=== PATIENT | male | born 1980 | race Caucasian/White ===

== ENCOUNTER 2016-12-21 11:12 | Inpatient (IN) | payer SELFPAY ==
[~2016-12-21] VITALS: Ht 188 cm; Wt 72.3 kg
--- NOTE | ~2016-12-21 | ER ---
PATIENT'S NAME: JOSIAH PALUMBO [facility] AGE: 36 Y [address] ROOM: [id number] [place] [id number] LOCATION: [facility] ADMIT DATE: 12/21/2016 ER/Outpatient Report DISCHARGE DATE: FAMILY PHYSICIAN: PHYSICIAN, NO ATTENDING PHYSICIAN: Greta Waddell Time of Arrival: 1112 hours. Time Seen: 1155 hours. IDENTIFICATION: A 36-year-old male. CHIEF COMPLAINT: Low back pain. HISTORY OF PRESENT ILLNESS: The patient is a 36-year-old male who has had low back pain, has seen a chiropractor for that, that seemed to get better, but now he has sciatic pain. Saw Dr. Dwyer in the clinic and was diagnosed with piriformis syndrome, treated with anti-inflammatories, Mobic and he has had an increase in pain from his left buttock all the way down his left leg and now his calf is hurting so bad he is having difficulty even bearing weight. He also has some numbness and tingling and this morning he had an episode where he was almost incontinent of urine. He was able to make it to the bathroom, but he felt like he was going to wet his pants which is unusual for him. No bowel problems. No known injury. PAST MEDICAL HISTORY: ALLERGIES: NO KNOWN DRUG ALLERGIES. CURRENT MEDICATIONS: He was given a shot of Toradol on in [place] and then he has been on meloxicam daily. MEDICAL PROBLEMS: Denies. PRIOR SURGERIES: Denies. SOCIAL HISTORY: The patient lives here in [place]. Works for [employer] and he has continued to work. Tobacco use, half pack per day for 5 years. Alcohol use, PATIENT'S NAME: JOSIAH PALUMBO [facility] AGE: 36 Y [address] ROOM: [id number] [place], [place] [address] LOCATION: [facility] ADMIT DATE: 12/21/2016 ER/Outpatient Report DISCHARGE DATE: FAMILY PHYSICIAN: PHYSICIAN, NO ATTENDING PHYSICIAN: Greta Waddell denies. Drug use, denies. REVIEW OF SYSTEMS: All systems reviewed and negative other than what is noted in the HPI. FAMILY HISTORY: No pertinent family history. PHYSICAL EXAMINATION: VITAL SIGNS: Weight 70.7 kilograms, blood pressure 134/60, pulse 68, respirations 20, temperature 97.2, and saturations 98% on room air. GENERAL: A 36-year-old male in obvious distress, a 10/10 pain. He is lying in a prone position on the cart. HEENT: Unremarkable. LUNGS: Clear to auscultation. HEART: Regular rate and rhythm. ABDOMEN: Soft, nondistended, nontender. SKIN: [place], warm, and dry. No lower extremity edema. He does have calf tenderness on the left. NEUROLOGIC: The patient is alert and oriented x4. Cranial nerves 2 through 12 grossly intact. Motor strength 5/5 throughout with the exception of plantar flexion of his left foot. He has a little bit of weakness. He has decreased sensation and tingling on the lateral aspect of the left leg, a little bit on the medial calf. Straight leg raise positive on the left. EMERGENCY DEPARTMENT COURSE: The patient was given Percocet 5/325 one tablet, Valium 2 mg p.o. for pain and spasm, while we were waiting for lab work. These did help with his pain and he was given the second Percocet. LABORATORY DATA AND X-RAYS: Hemoglobin 14.2, hematocrit 40.4, platelets 178, white count 6.5 with a normal differential. Sedimentation rate is 15. Sodium 143, potassium 3.7, chloride 110, CO2 of 27, BUN 19, creatinine 1.1, blood sugar 73. Liver enzymes normal. CRP less than 0.29. UA is negative. MRI of his lumbar spine, large left paracentral disk herniation at L4-L5 with spinal stenosis and left lateral recess stenosis, mild degenerative changes at the lower lumbar intervertebral levels with disk desiccation at L3-L4, L4-L5, and L5-S1. IMPRESSION AND PLAN: Large left paracentral disk herniation in a patient with chronic low back pain with acute exacerbation. The patient has sensory changes, slight weakness on plantar flexion, and difficulty controlling his urine this morning. I spoke with Dr. Waddell, the spine surgeon on-call, who recommended lumbar microdiskectomy. The patient did agree with this plan of care, so the patient PATIENT'S NAME: JOSIAH PALUMBO [facility] AGE: 36 Y [address] ROOM: [place] [id number] LOCATION: [facility] ADMIT DATE: 12/21/2016 ER/Outpatient Report DISCHARGE DATE: FAMILY PHYSICIAN: PHYSICIAN, NOAH ATTENDING PHYSICIAN: Greta Waddell will be admitted for Dr. Waddell who did evaluate the patient in the emergency room. MD RAHUL JANSEN/kayla /[id number] d: 12/21/168 t: 12/22/16 0712, OUTPATIENT REPORT
--- NOTE | ~2016-12-21 | HP ---
PATIENT'S NAME: GONSALO PALUMBO [facility] AGE: 36 Y [address] ROOM: [id number] [place], [place] [address] LOCATION: [facility] ADMIT DATE: 12/21/2016 History & Physical DISCHARGE DATE: FAMILY PHYSICIAN: PHYSICIAN, NO ATTENDING PHYSICIAN: Greta Waddell DATE OF SERVICE: 12/21/2016 REASON FOR CONSULTATION: Lumbar disk herniation. PATIENT IDENTIFICATION: Gonsalo Palumbo is a 36-year-old male. PRESENTING COMPLAINT: Left leg pain and difficulty with walking. HISTORY OF PRESENT ILLNESS: The patient has had back problems since May last year. Throughout the winter time, he had chiropractic adjustments. On or two weekends ago, the patient had onset of severe pain. He was in [place] at that time, and he went to the [place] emergency room where he had a shot and came home here to [place]. Yesterday, he had some more chiropractic treatment and the pain started to go into the lower part of his left leg. He also had more trouble with walking. This morning he tried to urinate and could barely make it to the bathroom and almost urinated on himself. He came to the emergency room and was seen by Dr. Villanueva. Lumbar spine MRI showed a large disk herniation. I was, therefore, consulted to see the patient. Currently the patient is walking with crutches. He has trouble with sensation on the left foot. The patient has tried physical therapy, but the physical therapy seems to make his symptoms worse. He also has tingling all the way down the left leg. PAST MEDICAL HISTORY: No history of any major medical illnesses in the past. CURRENT MEDICATIONS: Meloxicam. ALLERGIES: PATIENT'S NAME: GONSALO PALUMBO [facility] AGE: 36 Y [address] ROOM: [id number] [place], [place] [address] LOCATION: [facility] ADMIT DATE: 12/21/2016 History & Physical DISCHARGE DATE: FAMILY PHYSICIAN: PHYSICIAN, NO ATTENDING PHYSICIAN: Greta Waddell NONE. SOCIAL HISTORY: The patient is . He smokes half a pack of cigarettes per day for the last 5 years. FAMILY HISTORY: There is no family history of similar problems. REVIEW OF SYSTEMS: A 10-point review of systems was carried out and the only abnormal finding was as described in the history of present illness. GENERAL: The patient is a healthy-looking male, who was alert and cooperative when I saw him. VITAL SIGNS: Blood pressure is 134/60 with a pulse rate of 68. NEUROLOGICAL: His speech is clear and lucid. Cranial nerves no deficits seen. Motor examination, the patient has normal strength in all the major muscle groups of his upper and lower extremities bilaterally. Surprisingly, he does not have a left foot drop given the size of his disc herniation. Sensor examination, there is diminished sensation to light and touch in the left foot. He can feel my had touching his foot, but he feels like the hand is above the foot. Straight leg raising is strikingly positive at just about 20 degrees on the left side. Gait: The patient walks with a with crutches. His head is atraumatic. The patient's skin is decorated with multiple tattoos. CARDIOVASCULAR: Heart sounds are present. RESPIRATORY: The patient is not short of breath at bedside. EXTREMITIES: No cyanosis or clubbing. SKIN: No skin masses or skin rashes. REVIEW OF IMAGING STUDIES: The patient has had a lumbar MRI performed today. The MRI shows a very large left L4-5 disk herniation. The disk herniation just about occupies the entire spinal canal. There is a disk bulge at L3-4. ASSESSMENT: A 36-year-old male with chronic low back pain with an acute flare-up in the last 2 weeks. The patient has significant pain in his leg and minor difficulty controlling his urine. MEDICAL DECISION MAKING: I reviewed the imaging studies and discussed the findings with the patient. Basically, I have recommended lumbar microdiskectomy. I feel that with the duration of his symptoms and the severity of his pain, the size of the disk herniation, and most significantly the side that he almost lost during control PATIENT'S NAME: GONSALO PALUMBO [facility] AGE: 36 Y [address] ROOM: [id number] [place], [place] [address] LOCATION: [facility] ADMIT DATE: 12/21/2016 History & Physical DISCHARGE DATE: FAMILY PHYSICIAN: PHYSICIAN, NO ATTENDING PHYSICIAN: Greta Waddell this morning that surgery is appropriate for him. The surgery will be a left L4-5 microdiskectomy. I have gone over the benefits and risks of the procedure with the patient. I hope to operate on him this evening to reduce the risk of permanent neurological damage. MD SHELBY HALE/kayla /[id number] D: 644 T: 644 HISTORY & PHYSICAL
--- NOTE | ~2016-12-21 | OR ---
PATIENT'S NAME: JOSIAH PALUMBO [facility] AGE: 36 Y [address] ROOM: [place] [address] LOCATION: [facility] ADMIT DATE: 12/21/2016 OR/Procedure Report DISCHARGE DATE: FAMILY PHYSICIAN: PHYSICIAN, NO ATTENDING PHYSICIAN: Greta Waddell SURGEON: Greta Waddell MD SENIOR PREMIUM AUDITOR: [place]. DATE OF PROCEDURE: 12/21/2016 PREOPERATIVE DIAGNOSIS: Lumbar disk herniation. POSTOPERATIVE DIAGNOSIS: Lumbar disk herniation. PROCEDURE PERFORMED: 1. Left L4-5 hemilaminotomy, medial facetectomy, foraminotomy, and diskectomy for decompression of neural elements. 2. Use of intraoperative microscope. ANESTHESIA: General. ANESTHESIA PROVIDERS: Sarkis Woodard CRNA and Ren Block CRNA. HISTORY: The patient is a 36-year-old male with history of low back pain which got worse over the last couple of weeks. The patient had some adjustments yesterday and the pain shifted to his left leg. He also started having trouble with controlling his urine. He came to the emergency room today and an MRI of the lumbar spine showed a huge left side L4-5 disk herniation, just about taking up the entire spinal canal. On examination, the patient had significant pain and positive straight leg raising. I discussed the situation with the patient and explained to him that he was at risk of permanent neurological damage with the impending loss of bladder control. I have therefore recommended surgery. The above procedure, risks, and benefits were discussed with the patient and with his consent, he was taken to the operating room for surgery. PROCEDURE IN DETAIL: In the operating room, the patient was placed in a supine position, anesthetized and intubated. He was then rolled to a prone position on a Paul table, taking care to protect all pressure points. The incision line was marked out in the midline of his lower back corresponding to the L4-L5 level. The whole area was prepped and draped in a sterile fashion. Local anesthesia was infiltrated. The #10 blade was used to open the incision and to deepen it to the fascial layer. The fascia was opened. The tips of PATIENT'S NAME: JOSIAH PALUMBO [facility] AGE: 36 Y [address] ROOM: [place] [id number] LOCATION: [facility] ADMIT DATE: 12/21/2016 OR/Procedure Report DISCHARGE DATE: FAMILY PHYSICIAN: PHYSICIAN, NO ATTENDING PHYSICIAN: Greta Waddell the spinous processes were identified. The paraspinous muscles were dissected off the left side of the spinous processes of L4 and L5. The interlaminar space was cleared out. Dissection was continued until the laminae of these 2 vertebrae were also seen on the left side. The Hebert retractor was inserted. Next, the adjacent edges of the L4 and L5 laminae on the left side were drilled down and the medial facet was also drilled down between them. Microscope was brought in at this point and under microscopic vision, the ligamentum flavum was removed. The dura became visible. Almost as soon as the dura became visible, we began to see the herniated disk. It was peaking out from the ventral side of the dura. It was causing significant stenosis as the MRI had indicated. A small pituitary rongeur was used to pull out pieces of disk and without even entering the annulus. The removal of the disk pieces continued until we had some degree of decompression. The nerve root retractor was then used to mobilize the nerve root and hold it against the dura towards the midline. The disk was incised with a #15 blade and pituitary rongeur was used to pull out disk material. The down-pushing curette was used to push down more disk into the disk space which was again removed with a pituitary rongeur. The foraminotomy was also carried out using the #2 Kerrison to widen the outlet for the left L5 nerve root. Decompression continued until I felt that the nerve root had been satisfactorily decompressed as well as the dura. At this point, the edges of the bone were waxed. Irrigation was used to wash out the debris. Hemostasis was achieved. 4 mL of ropivacaine was placed in the epidural space. The incision was closed using appropriate suture materials and a sterile dressing was applied. The patient was rolled back to a supine position. His anesthesia was reversed. He was extubated and taken to the recovery room to complete his recovery. I was present at and performed every aspect of this procedure, assisted at some stages by operating room nurses. There were no apparent intraoperative complications. Swabs, needles, and instruments were all accounted for at the end of the case. Estimated blood loss was less than 100 mL and there was no reason for blood transfusion. I expect the patient's pain will be much better after this procedure. MD SHELBY HALE/kayla PATIENT'S NAME: JOSIAH PALUMBO [facility] AGE: 36 Y [address] ROOM: [place] [address] LOCATION: [facility] ADMIT DATE: 12/21/2016 OR/Procedure Report DISCHARGE DATE: FAMILY PHYSICIAN: PHYSICIAN, NOAH ATTENDING PHYSICIAN: Greta Waddell /[id number] d: 12/22/16224 t: 12/27/16 1647, OPERATIVE SUMMARY
[2016-12-21 12:24] LABS: BASOPHIL % 0.2 %; EOSINOPHIL # 0.1 K/uL (0.0-0.5); EOSINOPHIL % 2.2 %; HEMATOCRIT 40.4 % (37.0-53.0); HEMOGLOBIN 14.2 g/dL (12.0-17.0); IMMATURE GRANULOCYTE % 0.2 %; LYMPHOCYTE # 2.4 K/uL (0.8-4.0); LYMPHOCYTE % 36.7 %; MCH 30.8 pg (27.0-34.0); MCHC 35.1 gm/dL (32.0-36.5); MCV 87.6 fl (83.0-98.0); MONOCYTE # 0.4 K/uL (0.0-1.0); MONOCYTE % 6.3 %; MPV 9.7 fl (9.4-12.4); NEUTROPHIL # (ANC) 3.5 K/uL (1.4-9.0); NEUTROPHIL % 54.4 %; NRBC % 0 /100WBC (0-0.00); PLATELET COUNT 178 K/uL (150-450); RBC 4.61 M/uL (4.00-6.00); WBC 6.5 K/uL (4.0-11.0)
[2016-12-21 12:44] LABS: ALBUMIN 3.9 gm/dL (3.5-5.0); ALK PHOS 45 IU/L (33-138); ALT 29 IU/L (12-78); ANION GAP 9.7 (10.0-19.0); AST 20 IU/L (10-40); BLOOD UREA NITROGEN 19 mg/dL (6-24); CALCIUM 8.9 mg/dL (8.5-10.5); CHLORIDE 110 mMol/L (96-110); CO2 27 mMol/L (22-32); CREATININE 1.1 mg/dL (0.6-1.3); ESTIMATED GFR (MDRD EQUATION) > 60; POTASSIUM 3.7 mMol/L (3.7-5.1); SODIUM 143 mMol/L (135-145); TOTAL BILIRUBIN 0.4 mg/dL (0.0-1.5); TOTAL PROTEIN 7.3 g/dL (6.0-8.4)
[2016-12-21 14:16] LABS: COLOR URINE YELLOW (YELLOW); TURBIDITY URINE CLEAR (CLEAR)
[2016-12-21 14:17] LABS: BILIRUBIN URINE NEGATIVE (NEGATIVE); BLOOD URINE NEGATIVE /UL (NEGATIVE); GLUCOSE URINE NEGATIVE (NEGATIVE); KETONE URINE NEGATIVE (NEGATIVE); LEUKOCYTES URINE NEGATIVE /UL (NEGATIVE); NITRITE URINE NEGATIVE (NEGATIVE); PROTEIN URINE NEGATIVE (NEGATIVE); UROBILINOGEN URINE NORMAL (NORMAL)
[2016-12-21] MEDS ORDERED: TYLENOL325 MG PO (17:25)
[2016-12-21] MEDS ORDERED: MELOXICAM15 MG PO (17:25)
[2016-12-22] MEDS ORDERED: NORCO 7.5-3251 EACH PO (17:14)
== END 2016-12-22 17:45 | disposition disaster alternative care site (69) | DRG 520 ==
LOC: GMED 11:12 → GNTU 15:21
PROVIDERS: Family Medicine; ADMIT Neurological Surgery
PROC: 01NB0ZZ Release Lumbar Nerve, Open Approach (ICD-10-PCS; principal; 2016-12-21)
PROC: 0SB20ZZ Excision of Lumbar Vertebral Disc, Open Approach (ICD-10-PCS; principal; 2016-12-21)
DX: M51.26 Other intervertebral disc displacement, lumbar region (principal); F17.210 Nicotine dependence, cigarettes, uncomplicated; M48.06 Spinal stenosis, lumbar region; M54.30 Sciatica, unspecified side
CPT/HCPCS: J0690; J2270; J2795; J7030; J7120

== ENCOUNTER 2017-01-01 14:24 | Emergency (ER) | payer SELFPAY ==
--- NOTE | ~2017-01-01 | ER ---
PATIENT'S NAME: JOSIAH PALUMBO [facility] AGE: 36 Y [address] ROOM: [place] [address] LOCATION: [facility] ADMIT DATE: 01/01/2017 ER/Outpatient Report DISCHARGE DATE: 01/01/2017 FAMILY PHYSICIAN: PHYSICIAN, NO ATTENDING PHYSICIAN: Deangelo Arceo Time of arrival: 1424 hours. Time of evaluation: 1424 hours. CHIEF COMPLAINT: Abdominal pain. HISTORY OF PRESENT ILLNESS: The patient is a 36-year-old male who presents to the emergency department today with chief complaint of abdominal pain. He reports this started at 5 o'clock this morning. It is in the epigastric region. It is sharp. It is currently 10/10 in severity. He reports nausea with one episode of vomiting, did have some streaks of blood. Denies any fevers or chills. No urinary frequency, urgency, or painful urination. No diarrhea. PAST MEDICAL HISTORY: Back pain. PAST SURGICAL HISTORY: Recent decompression of L4-L5 by Dr. Waddell. SOCIAL HISTORY: The patient denies any tobacco, alcohol, or illicit drug use. ALLERGIES: NO KNOWN DRUG ALLERGIES. MEDICATIONS: Please see list. PRIMARY CARE DOCTOR: None. REVIEW OF SYSTEMS: All systems are reviewed by myself are negative with the exception of those discussed in HPI and past medical history. PHYSICAL EXAMINATION: VITAL SIGNS: Weight 74.3 kg. Blood pressure 112/55, pulse 72, respiratory rate 24, temperature 97.1, oxygen saturation 96% on room air. PATIENT'S NAME: JOSIAH PALUMBO [facility] AGE: 36 Y [address] ROOM: [place] [address] LOCATION: [facility] ADMIT DATE: 01/01/2017 ER/Outpatient Report DISCHARGE DATE: 01/01/2017 FAMILY PHYSICIAN: PHYSICIAN, NO ATTENDING PHYSICIAN: Deangelo Arceo GENERAL: The patient is a 36-year-old male, well developed, well nourished, who acts in severe pain. HEENT: Normocephalic, atraumatic. Pupils are equal, round, and reactive to light. Oropharynx is clear. NECK: Supple. There is no nuchal rigidity. CARDIOVASCULAR: Regular rate and rhythm. No murmurs, rubs, or gallops. LUNGS: Clear to auscultation bilaterally. No wheezes, rales, or rhonchi. ABDOMEN: Soft, diffuse tenderness to palpation. There is no rebound, rigidity, or guarding. Positive bowel sounds. MUSCULOSKELETAL: The patient moves all 4 extremities. SKIN: Warm and dry. Suture on the lumbar spine is clean, dry, and intact. No erythema noted. LABORATORY DATA AND X-RAYS: Labs and x-rays are obtained. CBC is normal. CMP is unremarkable except for CO2 of 19. PTT is normal. PT is normal. Lactate 3.5. LFTs normal. Lipase is normal. Procalcitonin 0.08. Urinalysis showed 25 leukocyte esterase, 15 protein, [address] scan of the abdomen and pelvis is obtained. I have discussed results with the radiologist. CT scan of the back is also obtained. I have also discussed this result with the radiologist, shows no acute process. Urine drug screen is unremarkable except for positive opiate and positive cannabinoids. IMPRESSION: 1. Acute nonsurgical midepigastric abdominal pain. 2. Status post postoperative changes L4-L5. 3. Moderate dehydration. 4. Initial visit. EMERGENCY DEPARTMENT COURSE: The patient was brought back to the examination room. Seen and evaluated by myself. IV is established. Laboratory analysis and imaging are obtained as described above. The patient is given a liter of normal saline IV. He is given 30 mg of Toradol IV as well as 10 mg of Compazine IV and 50 mg of Benadryl IV. This has resulted in improvement and resolution of the patient's nausea and vomiting as well as significant improvement in the patient's pain. He is given another liter of fluids. I have discussed the case with Dr. Waddell. He has seen and evaluated the patient here in emergency department as well. Dr. Waddell would like to see the patient in one week for followup. I have discussed return to care instructions including worsening symptoms or any other concerns to return to emergency department as soon as possible. He is agreeable without further questions at this time. DISPOSITION: The patient is discharged to home in good condition. PATIENT'S NAME: JOSIAH PALUMBO [facility] AGE: 36 Y [address] ROOM: [place] [address] LOCATION: [facility] ADMIT DATE: 01/01/2017 ER/Outpatient Report DISCHARGE DATE: 01/01/2017 FAMILY PHYSICIAN: NOAH ASHFORD ATTENDING PHYSICIAN: Deangelo Arceo DO ANDER ALCANTARA/breel /[id number] d: 01/02/17 1257 t: 01/10/17 0701, OUTPATIENT REPORT
--- NOTE | ~2017-01-01 | CON ---
PATIENT'S NAME: JOSIAH PALUMBO [facility] AGE: 37 Y [address] ROOM: [place] [address] LOCATION: [facility] ADMIT DATE: 01/01/2017 Consultation DISCHARGE DATE: 01/01/2017 FAMILY PHYSICIAN: PHYSICIAN, NO ATTENDING PHYSICIAN: Deangelo Arceo DATE OF CONSULTATION: 01/01/2017 REASON FOR CONSULTATION: Emergency room visit. HISTORY OF PRESENT ILLNESS: The patient came to the emergency room with complaints of abdominal pain. According to the records, the abdominal pain started 5 o'clock in the morning of his emergency room visit. It was a sharp pain in the epigastrium, rated at 10/10 in severity associated with nausea and vomiting with some streaks of blood in the vomit. There were no fevers or chills. No urinary symptoms. No diarrhea. PAST MEDICAL HISTORY: Significant for lumbar laminectomy and diskectomy performed about a week prior to the emergency room visit. It was on account of these recent surgery that I was asked to check the patient during his emergency room visit. ALLERGIES: NO KNOWN DRUG ALLERGIES. CURRENT MEDICATIONS: Please see chart. FAMILY HISTORY: Noncontributory. SOCIAL HISTORY: The patient is . He does smoke cigarettes. REVIEW OF SYSTEMS: A 10-point review of systems was carried out. The only abnormal finding was as described in the history of present illness above. PHYSICAL EXAMINATION: VITAL SIGNS: In the emergency room, blood pressure 112/55, pulse rate 72, respiratory rate 24, temperature 97.1, oxygen saturations 96%. GENERAL: The patient is a healthy-looking 36-year-old male who appeared to be in a fair amount of pain. PATIENT'S NAME: JOSIAH PALUMBO [facility] AGE: 37 Y [address] ROOM: [place] [address] LOCATION: [facility] ADMIT DATE: 01/01/2017 Consultation DISCHARGE DATE: 01/01/2017 FAMILY PHYSICIAN: PHYSICIAN, NO ATTENDING PHYSICIAN: Deangelo Arceo HEAD, EYES, EARS, NOSE, AND THROAT: Head is atraumatic. Eyes and ears no evidence of trauma. Pupils equal and reactive. NECK: No neck stiffness. CARDIOVASCULAR SYSTEM: Heart sounds are present. RESPIRATORY SYSTEM: The patient was not short of breath at bedside. ABDOMEN: According to the ER notes, diffuse tenderness to palpation. No rebound or guarding. MUSCULOSKELETAL: The patient moves all his extremities well. SKIN: Dry and intact. BACK: The lumbar incision was clean, dry, and intact. There was no swelling or redness. REVIEW OF IMAGING STUDIES: A CT scan of the lumbar spine was performed, the impression was postoperative changes on the left side at L4-5, no specific CT findings of infection. ASSESSMENT: A 36-year-old gentleman with abdominal pain. MEDICAL DECISION MAKING: I was asked to see the patient in the emergency room because he had had recent lumbar surgery prior to the presentation with abdominal pain. There was nothing in the abdominal pain or the imaging studies obtained to indicate in association with his lumbar surgery. There was therefore no treatment offered to him in that relation. He will be followed up in the Neurosurgery Clinic as originally scheduled to check how he is doing, but for now, there is no indication for neurosurgical intervention. MD ERICH HALEO/modl /[id number] d: 01/22/17 1139 t: 01/22/17 1820, CONSULTATION REPORT
[~2017-01-01 14:24] MED LIST: MELOXICAM15 MG PO; NORCO 7.5-3251 EACH PO; TYLENOL325 MG PO
[2017-01-01 14:55] LABS: BASOPHIL % 0.2 %; EOSINOPHIL % 0.1 %; HEMATOCRIT 39.9 % (37.0-53.0); HEMOGLOBIN 14.5 g/dL (12.0-17.0); IMMATURE GRANULOCYTE % 0.4 %; LYMPHOCYTE # 0.6 K/uL (0.8-4.0); LYMPHOCYTE % 5.8 %; MCH 30.9 pg (27.0-34.0); MCHC 36.3 gm/dL (32.0-36.5); MCV 84.9 fl (83.0-98.0); MONOCYTE # 0.3 K/uL (0.0-1.0); MONOCYTE % 3.4 %; MPV 9.4 fl (9.4-12.4); NEUTROPHIL # (ANC) 9.1 K/uL (1.4-9.0); NEUTROPHIL % 90.1 %; NRBC % 0 /100WBC (0-0.00); PLATELET COUNT 194 K/uL (150-450); RDW-CV 11.7 % (11.9-14.6); WBC 10.1 K/uL (4.0-11.0)
[2017-01-01 15:04] LABS: INR - (THERAPEUTIC) 1.05 (0.92-1.07); PTT 27 SECONDS (25-32)
[2017-01-01 15:11] LABS: ALBUMIN 3.8 gm/dL (3.5-5.0); ALK PHOS 59 IU/L (33-138); ALT 47 IU/L (12-78); ANION GAP 17.8 (10.0-19.0); AST 31 IU/L (10-40); BLOOD UREA NITROGEN 26 mg/dL (6-24); CALCIUM 8.8 mg/dL (8.5-10.5); CHLORIDE 106 mMol/L (96-110); CO2 19 mMol/L (22-32); CREATININE 1.2 mg/dL (0.6-1.3); ESTIMATED GFR (MDRD EQUATION) > 60; POTASSIUM 3.8 mMol/L (3.7-5.1); SODIUM 139 mMol/L (135-145); TOTAL BILIRUBIN 0.6 mg/dL (0.0-1.5); TOTAL PROTEIN 7.7 g/dL (6.0-8.4)
[2017-01-01 16:22] LABS: BILIRUBIN URINE NEGATIVE (NEGATIVE); BLOOD URINE NEGATIVE /UL (NEGATIVE); COLOR URINE YELLOW (YELLOW); GLUCOSE URINE NEGATIVE (NEGATIVE); KETONE URINE 150 mg/dL (NEGATIVE); LEUKOCYTES URINE 25 /UL (NEGATIVE); NITRITE URINE NEGATIVE (NEGATIVE); PROTEIN URINE 15 mg/dL (NEGATIVE); SPEC GRAVITY URINE 1.005 (1.003-1.035); TURBIDITY URINE 1+ (CLEAR); UROBILINOGEN URINE NORMAL (NORMAL)
[2017-01-01 16:36] LABS: BACTERIA URINE NEGATIVE (NEGATIVE); EPITHELIAL URINE 0-2 #/HPF (NEGATIVE); RBC URINE RARE #/HPF (NEGATIVE); WBC URINE 0-2 #/HPF (NEGATIVE)
[2017-01-01 16:45] LABS: BARBITURATE NEGATIVE (NEGATIVE); OPIATES POSITIVE (NEGATIVE)
[2017-01-01 16:46] LABS: AMPHETAMINE NEGATIVE (NEGATIVE); COCAINE NEGATIVE (NEGATIVE)
== END 2017-01-01 17:34 | disposition disaster alternative care site (69) ==
LOC: GMED 14:24
PROVIDERS: Emergency Medicine
DX: R10.13 Epigastric pain (principal); E86.0 Dehydration; Z79.899 Other long term (current) drug therapy; Z98.890 Other specified postprocedural states
CPT/HCPCS: J0780; J1200; J1885; J2405; J7030; Q9967